=== PATIENT | male | born 1995 | race Asian ===

== ENCOUNTER 2020-03-16 19:54 | Emergency (ER) | payer MEDICAID ==
[~2020-03-16] VITALS: Ht 172.7 cm; Wt 63.5 kg
[2020-03-16 20:07] VITALS: BP_SYST 140
--- NOTE | 2020-03-16 20:10 | NUR ---
Pt ambulatory to waiting room, in stable condition
--- NOTE | 2020-03-16 22:00 | NUR ---
Joseluis bernal in [facility] - 03/17/20 at [id number] by [id number] Pt anjum from facility
--- NOTE | 2020-03-16 22:19 | NUR ---
ER in triage examining patient.
--- NOTE | 2020-03-16 23:00 | NUR ---
Pt eloped from facility
[2020-03-16 23:17] LABS: BASOPHILS % (AUTO) 0.4 % (0.0-2.0); EOSINOPHILS # (AUTO) 0.2 K/uL (0.0-0.4); EOSINOPHILS % (AUTO) 2.7 % (0.0-4.0); HEMATOCRIT 41.8 % (36-54); HEMOGLOBIN 14.4 g/dL (14.0-18.0); LYMPHOCYTES # (AUTO) 3.8 K/uL (1.0-5.5); LYMPHOCYTES % (AUTO) 46.1 % (20.5-51.5); MEAN CORPUSCULAR HEMOGLOBIN 31 pg (27-31); MEAN CORPUSCULAR HGB CONC 35 % (32-36); MEAN CORPUSCULAR VOLUME 89 fL (79.0-98.0); MONOCYTES # (AUTO) 0.7 K/uL (0.0-1.0); MONOCYTES % (AUTO) 8.3 % (1.7-9.3); NEUTROPHILS # (AUTO) 3.5 K/uL (1.8-7.7); NEUTROPHILS % (AUTO) 42.5 % (40.0-70.0); PLATELET COUNT (AUTO) 309 K/uL (130-430); RED CELL DISTRIBUTION WIDTH 12.6 % (9.0-15.0); WHITE BLOOD COUNT (AUTO) 8.3 K/uL (4.8-10.8)
[2020-03-16 23:27] LABS: ANION GAP 6 (5-15); CALCIUM 8.9 mg/dL (8.4-11.0); CHLORIDE 104 mmol/L (98-107); CREATININE 0.89 mg/dL (0.55-1.30); GLUCOSE 85 mg/dL (70-99); POTASSIUM 3.9 mmol/L (3.5-5.1); SODIUM SERUM 139 mmol/L (136-145); UREA NITROGEN, BLOOD 14 mg/dL (8-21)
[2020-03-16 23:28] LABS: GFR AFRICAN AMERICAN 136 mL/min (>90)
[2020-03-16 23:36] LABS: ALANINE AMINOTRANSFERASE 18 U/L (12-78); ASPARTATE AMINOTRANSFERASE 13 U/L (10-37); TOTAL BILIRUBIN 0.6 mg/dL (0.0-1.0)
[2020-03-17 03:24] VITALS: BP_SYST 140
== END 2020-03-16 23:00 | disposition left against medical advice (07) ==
LOC: SED 19:54
DX: R07.89 Other chest pain (principal)
CPT/HCPCS: 36415; 71045; 80053; 84484; 85025; 93005; 99285

== ENCOUNTER 2023-10-01 20:38 | Emergency (ER) | payer MEDICAID, OTHER ==
[~2023-10-01] VITALS: Ht 172.7 cm; Wt 63.5 kg
[2023-10-01 20:41] VITALS: BP_SYST 124; PULSE 88; RESP 18; TEMP 96.7; O2SAT 96
[2023-10-01 20:47] VITALS: BP_SYST 124; PULSE 88; RESP 18; TEMP 96.7; O2SAT 96
[2023-10-01] MEDS ORDERED: AUG875 PO (22:17)
[2023-10-01] MEDS: KETOROLAC TROMETHAMINE 30 MG VIAL IM ONE (22:23)
[2023-10-01] MEDS: AMOXICILLIN/POTASSIUM CLAV 875 MG TABLET PO ONE (22:23)
== END 2023-10-01 22:40 | disposition home or self-care (01) ==
LOC: SED 20:38
DX: R51.9 Headache, unspecified (principal); J32.8 Other chronic sinusitis; Z79.2 Long term (current) use of antibiotics
CPT/HCPCS: 99283; 96372; J1885